=== PATIENT | male | born 1950 | race Caucasian/White ===

== ENCOUNTER 2025-06-10 04:01 | Emergency (ER) | payer MEDICARE, OTHER, SELFPAY ==
[2025-06-10 04:04] VITALS: BP 106/64
[2025-06-10 04:24] LABS: Hematocrit 32.0 % (39.0-52.0); Hemoglobin 10.1 g/dL (13.0-18.0); Mean Corp Hgb Conc. 31.6 g/dL (33.0-37.0); Mean Corpuscular Volume 83.8 fL (80.0-94.0); Nucleated Red Blood Cells % 0 % (-); Platelet Count 242 10^3/uL (130-400); Red Cell Dist. Width 13.5 % (11.5-14.5)
[2025-06-10 05:12] LABS: ALT (SGPT) 25 U/L (0-50); AST (SGOT) 24 U/L (17-59); Albumin 4.3 g/dl (3.5-5.0); Alkaline Phosphatase 94 U/L (38-126); Blood Urea Nitrogen 38 mg/dl (9-20); Calcium 9.4 mg/dl (8.4-10.2); Carbon Dioxide 25 mmol/L (22-30); Chloride 105 mmol/L (98-107); Glucose 99 mg/dl (70-99); Potassium 5.1 mmol/L (3.5-5.1); Sodium 136 mmol/L (135-145); Total Protein 6.8 g/dl (6.3-8.2); eGFR 57.65
[2025-06-10 07:33] VITALS: BMI 20.5
[2025-06-10 07:40] VITALS: BP 138/73
[2025-06-10 08:00] VITALS: BP 146/61
--- NOTE | 2025-06-10 08:00 | ED.GENMED ---
History of Present Illness
General
Chief Complaint: Male Genito-Urinary Symptoms
Source: patient
Exam Limitations: none
Time Seen by Provider: 06/10/25 07:24
Nursing documentation reviewed up to this point in time: agreed with
History of Present Illness
History of Present Illness:
pt is a 74 y/o M
h/o PAF on eliquis
s/p HoLEP surgery for prostate on 06/02 at [facility]
held eliquis until las riight
had catheter until 06/04 which was pulled in office
having hematuria but voiding
yesterday wasn't drinking as much fluids
took eliquis to resume normal med at 1230 am
woke up at 130 and had urge to void
had a few clots but was able to pee
but then stopped being able to pee and felt bladder pressure, discomfort
while here inthe waiting room, passed large clot and ultimately was able to void
he has not had fever, chills, vomiting, syncope
hg pre op 11.1
cr 1.17
Past History
Past History
ED Past Medical History: Arrthythmia (Paroxysmal Atrial fibrillation), CAD, GERD, HTN, Hypercholesterolemia, MT, Valvular disease (Aortic stenosis with replacement) and Other (eosinophilia pneumonia, BPH,Pericarditis, Fracture left arm)
ED Past Surgical History: Cardiac (Cardiac stents, AVR 06/10), Orthopedic (Surgery for fracture of left arm), Tonsilectomy and Other (sinus surgery)
Social History
Tobacco: Former smoker
Alcohol: Occasional
Drug: None
Personal:
Living: with family
Employment: Retired
Phy Exam
Physical Exam
Physical Exam:
GENERAL: Alert , in no apparent distress
EYE: pupils equal and reactive
NECK: Supple
ENT: o/p clr, mmm.
CARDIAC: Regular rate and rhythm .
LUNGS: Clear breath sounds bilaterally, no acute respiratory distress, no wheezes/rales/rhonchi
ABDOMEN: Soft, without focal tenderness, no r/g, no cvat, normal bowel sounds
bladder not palpable
gu: normal insepction penis/scrotum
NEUROLOGICAL: Alert and oriented, no focal neuro deficits
SKIN: Warm and dry, skin intact.
MUSCULOSKELETAL: No edema, well perfused. neg yonathan's sign
PSYCH: Normal and appropriate interaction.
Course
Orders/Labs/Results
Orders:
Orders
06/10/25 04:12
CMP [Comprehensive Metabolic Panel] Urgent
Complete Blood Count/With Diff Urgent
06/10/25 07:47
Urinalysis Reflex To Culture Urgent
Date Specimen was Collected: 06/10/25
Time Specimen was Collected: 07:45
Urine Microscopic Reflex Cult Urgent
Urine Culture Urgent
BIANCA Source: U
Specimen Description:
Date Specimen was Collected: 06/10/25
Time Specimen was Collected: 07:45
Abnormal Lab Results
06/10/25 06/10/25
04:12 07:47
WBC 10.9 H 10^3/uL
(4.8-10.8)
RBC 3.82 L 10^6/uL
(4.70-6.10)
Hgb 10.1 L g/dL
(13.0-18.0)
Hct 32.0 L %
(39.0-52.0)
MCH 26.4 L pg
(27.0-31.0)
MCHC 31.6 L g/dL
(33.0-37.0)
Abs Immat Gran (auto) 0.1 H 10^3/uL
(0-0.05)
Absolute Neuts (auto) 7.0 H 10^3/uL
(1.4-6.5)
Absolute Monos (auto) 1.2 H 10^3/uL
(0.1-0.6)
Absolute Eos (auto) 0.8 H 10^3/uL
(0-0.7)
Immature Gran % 0.8 H %
(0-0.5)
Lymphocytes % 15.5 L %
(20.5-51.1)
Monocytes % 11.3 H %
(1.7-9.3)
Eosinophils % 7.5 H %
(0-6)
BUN 38 H mg/dl
(9-20)
Ur Occult Blood Reflex 4+ A
(Negative)
Leukocyte Esterase Rfl 3+ A
(Negative)
Urine RBC >100 A /HPF
(0-2)
Urine WBC (Reflex) 21-25 A /HPF
(0-5)
Urine Bacteria (Reflex) Moderate A
(Negative)
Urine Albumin (Reflex) 3+ A
(Neg - Trace)
06/10/25 04:12
06/10/25 04:12
Vital Signs
Initial and Last Documented VS:
Initial Vital Signs
Temp Pulse Resp BP Pulse Ox
36.5 C 60 18 106/64 100
06/10/25 04:04 06/10/25 04:04 06/10/25 04:04 06/10/25 04:04 06/10/25 04:04
Last Documented Vital Signs
Temp Pulse Resp BP Pulse Ox
36.5 C 64 14 132/64 100
06/10/25 09:17 06/10/25 09:17 06/10/25 09:17 06/10/25 09:17 06/10/25 09:17
MDM/Problems Addressed
Differential Diagnosis Includes:
hematuria
MDM/Problems Addressed:
74-year-old male 8 days postop a HoLEP procedure of his prostate at [facility], history of paroxysmal A-fib though he is typically in sinus rhythm presents for hematuria and urinary retention. Patient said that he had a Campa catheter
until 9�10 when it was removed in the office he was able to void afterwards, he has had ongoing hematuria though it was
Translucent wine color until early this morning when he had the urge to urinate and was unable to do so. Patient was uncomfortable with bladder discomfort and the urge to urinate from about 2 AM until 6:30 AM while in the ER waiting room he passed
a large clot in his depends and then was able to void. He was able to void an additional 2 times here which looks much more clear pink rather than dark blood with clots. Patient has no abdominal pain. He says he did not drink as much fluids
yesterday but is encouraged to drink more fluids today. His preop hemoglobin was 11.1. Today's is 10.2. This seems to probably be expected following his surgery
He did resume his Eliquis just before this clot retention began. He was told to hold the Eliquis at least for today and probably tomorrow. He is in sinus rhythm on the monitor.
I did reach out to his urologist group just to update them. Patient is pretty adamant about not having a catheter and his PVR was 180 prior to or even being able to void again. So I feel that he is stable to go home without a catheter. He is
aware that this could happen again. He is to follow-up with his urologist
the urologist i paged from [facility] did not call me back
*Pulse Oximetry
SaO2: 100
Oxygen Mode of Delivery: Room air
Patient hypoxic: no (100)
*Critical Care Note
Total Time (30-74mins, 75-104mins- exclusive of procedures): Not Applicable
ED Attending Note
-
Portions of this chart may have been created with voice recognition software.� Occasional wrong word or��sound alike� substitutions may have occurred due to the inherent limitations of voice recognition software.
Discharge Plan
Departure
Patient Disposition: Home (Routine Discharge)
Date of Disposition: 06/10/25
Time of Disposition: 08:17
Patient with high blood pressure during this ER visit?: No
Condition: Fair
Covid-19: Not Applicable
Discharge Problem:
Hematuria
Instructions: Blood in the Urine (Hematuria), Adult (DC)
Prescriptions:
No Action
atorvastatin [Lipitor] 10 MG tablet
40 mg PO DAILY
alfuzosin [Uroxatral] 10 MG tablet extended release 24 hr
10 mg PO DAILY
ezetimibe 10 MG tablet
10 mg PO DAILY
Osteo Bi-Flex Caplet
1 tab PO BID
Toprol Xl:
25 mg PO BID
Colace
1 tab PO BID
Flovent 220Mcg:
2 puff inhalation BID
Nexium
20 mg PO DAILY
apixaban [Eliquis] 5 MG tablet
5 mg PO BID Qty: 0 0RF
multivitamin [Daily Multiple] 1 EACH tablet
1 tab PO DAILY
albuterol sulfate [Ventolin HFA] 90 MCG/PUFF HFA aerosol inhaler
1 puff inhalation PRN PRN (Reason: sob)
ascorbate calcium-bioflavonoid [Clari-C with Bioflavonoids] 1 EACH tablet
1 ea PO . DIRECTED
fluticasone propionate [Flovent Rotadisk] 50 MCG blister with device
1 puff intranasal DAILY
aspirin 81 MG tablet,delayed release (DR/EC)
81 mg PO DAILY
acetaminophen [Tylenol Extra Strength] 500 MG tablet
500 mg PO Q4HPRN PRN (Reason: pain/fever)
zolpidem 10 MG tablet
10 mg PO HSPRN PRN (Reason: sleep)
loratadine 10 MG tablet
10 mg PO PRN PRN (Reason: allergy)
lutein 20 MG capsule
20 mg PO Q48H
icosapent ethyl [Vascepa] 1 GM capsule
2 gm PO BID
doxycycline hyclate 100 mg tablet
100 mg PO BID Qty: 14 0RF
Referrals:
El Kilgore MD [Family Provider, Internal Medicine] - Follow up in 2-3 days
Activity Restrictions/Additional Instructions:
YOU WERE ABLE TO PEE AFTER PASSING THE CLOT
YOU SHOULD CALL YOUR UROLOGIST FOR FOLLOW UP
HOLD YOUR ELIQUIS TODAY AND PROBABLY TOMORROW TOO
DRINK MORE FLUIDS YOU WERE MILDLY DEHYDRATED
RETURN FOR SEVERE PAIN, FEVER, VOMITING, PASSINGOUT, URINARY RETENTION OR ANYC ONCERNS.
Interventions
Interventions:
*Risk Screen - Suicide Last Done: 06/10/25 04:04
*General Assessment Last Done: 06/10/25 07:33
*Neglect/Abuse Screening Last Done: 06/10/25 04:04
*ED- Fall Risk Assessment Last Done: 06/10/25 07:33
*ED COVID-19 Vaccine History Last Done: 06/10/25 07:33
*Nursing Disposition Last Done: 06/10/25 09:17
ED-Male Genitourinary Assessment Last Done: 06/10/25 07:33
Discharge Date and Time
Discharge Date/Time: 06/10/25 09:19
Print Language: WELSH
[2025-06-10 08:03] LABS: Urine Character Bloody (Clear)
[2025-06-10 08:27] LABS: Urine Red Blood Cell >100 /HPF (0-2); Urine Squamous Cell 0-2 /LPF (Few); Urine White Cell 21-25 /HPF (0-5)
--- NOTE | 2025-06-10 09:12 | EDRN ---
Reviewed discharge instructions with patient. Verbalized understanding. Ambulated with steady gait to the lobby.
[2025-06-10 09:17] VITALS: BP 132/64
== END 2025-06-10 09:19 | disposition home or self-care (01) ==
LOC: EMR 04:01
PROVIDERS: Emergency Medicine; Physician Assistant; EMERGENCY PHYSICIAN Emergency Medicine; FAMILY PHYSICIAN Internal Medicine
DX: R31.9 Hematuria, unspecified (principal); N40.0 Benign prostatic hyperplasia without lower urinary tract symptoms; I25.10 Atherosclerotic heart disease of native coronary artery without angina pectoris; I48.0 Paroxysmal atrial fibrillation; I35.0 Nonrheumatic aortic (valve) stenosis; I10 Essential (primary) hypertension; E78.00 Pure hypercholesterolemia, unspecified; I25.2 Old myocardial infarction; K21.9 Gastro-esophageal reflux disease without esophagitis; Z79.01 Long term (current) use of anticoagulants; Z95.5 Presence of coronary angioplasty implant and graft; Z95.2 Presence of prosthetic heart valve; Z87.891 Personal history of nicotine dependence
CPT/HCPCS: 99283; 80053; 81003; 81015; 85025; 87086